=== PATIENT | female | born 1990 | race Caucasian/White ===

== ENCOUNTER 2019-06-29 12:23 | Emergency (ER) | payer SELFPAY ==
[~2019-06-29] VITALS: Ht 172.7 cm; Wt 62.7 kg
[2019-06-29 12:29] VITALS: TEMP 97.9
[2019-06-29] MEDS ORDERED: SEROQUEL 200MG200 MG PO (13:23)
[2019-06-29] MEDS ORDERED: LAMICTAL 25MG T25 MG PO (13:24)
[2019-06-29] MEDS ORDERED: PROZAC 20MG20 MG PO (13:24)
[2019-06-29] MEDS ORDERED: NORCO 325 MG-51 TAB PO (14:03)
[2019-06-29 14:35] VITALS: BP 106/69; PULSE 66
== END 2019-06-29 14:48 | disposition home or self-care (01) ==
LOC: COL.ER 12:23
DX: S93.402A Sprain of unspecified ligament of left ankle, initial encounter (principal); S93.602A Unspecified sprain of left foot, initial encounter; F17.210 Nicotine dependence, cigarettes, uncomplicated; F12.90 Cannabis use, unspecified, uncomplicated; X50.1XXA Overexertion from prolonged static or awkward postures, initial encounter; Y92.009 Unspecified place in unspecified non-institutional (private) residence as the place of occurrence of the external cause

== ENCOUNTER 2020-06-08 13:17 | Emergency (ER) | payer SELFPAY ==
[~2020-06-08] VITALS: Ht 172.7 cm; Wt 67.7 kg
[~2020-06-08 13:17] MED LIST: LAMICTAL 25MG T25 MG PO; NORCO 325 MG-51 TAB PO; PROZAC 20MG20 MG PO; SEROQUEL 200MG200 MG PO
[2020-06-08 13:29] VITALS: TEMP 98.6
[2020-06-08] MEDS ORDERED: PERCOCET 325 MG1 TA2 PO (16:48)
[2020-06-08] MEDS ORDERED: DOXYCYCLINE 10100 MG PO (16:48)
[2020-06-08] MEDS ORDERED: ZOVIRAX400 MG PO (16:48)
[2020-06-08 17:16] VITALS: BP 136/76; PULSE 78
== END 2020-06-08 17:16 | disposition home or self-care (01) ==
LOC: COL.ER 13:17
DX: L98.9 Disorder of the skin and subcutaneous tissue, unspecified (principal); F41.9 Anxiety disorder, unspecified

== ENCOUNTER 2021-07-10 14:36 | Emergency (ER) | payer SELFPAY ==
[~2021-07-10] VITALS: Ht 172.7 cm; Wt 56.8 kg
[~2021-07-10 14:36] MED LIST changes: +DOXYCYCLINE 10100 MG PO; +PERCOCET 325 MG1 TA2 PO; +ZOVIRAX400 MG PO
[2021-07-10 14:44] VITALS: TEMP 98.1
[2021-07-10 15:11] LABS: BASO % 0.3 % (0.0-2.0); EOS # 0.2 (0.0-0.7); EOS % 1.7 % (0-4.0); GRAN # 6.5 (1.4-6.5); GRAN % 75.2 % (42.2-75.2); HEMATOCRIT 40.1 % (37.0-47.0); HEMOGLOBIN 13.8 g/dl (12.5-16.0); LYMPH # 1.3 (1.2-3.4); LYMPH % 15.2 % (20.0-51.0); MEAN CELL VOLUME 86 fl (80.0-100.0); MEAN CORPUSCULAR HEMOGLOBIN 30 pg (27.0-31.0); MEAN CORPUSCULAR HGB CONC 34 g/dl (33.0-37.0); MEAN PLATELET VOLUME 11.3 fl (7.4-10.4); MONO # 0.6 (0.1-0.6); MONO % 7.4 % (1.7-9.3); PLATELET COUNT 215 K/mm3 (130-400); RED BLOOD COUNT 4.66 M/mm3 (4.10-5.30); REDCELL DISTRIBUTION WIDTH-CV 11.8 % (11.5-14.5)
[2021-07-10 15:18] LABS: COLLECTION METHOD CLEAN CATCH
[2021-07-10 15:23] LABS: ALBUMIN 4.3 gm/dL (3.5-5.0); BILIRUBIN,TOTAL 0.7 mg/dL (0.0-1.0); CREATININE, serum 0.65 (0.52-1.25); POTASSIUM 3.3 mmol/L (3.4-5.0); TOTAL PROTEIN 7.2 gm/dL (6.4-8.2)
[2021-07-10 15:26] LABS: BUDDING YEAST Present /hpf; MUCOUS Present /lpf; PH 5 (5-8); URINE APPEARANCE Cloudy; URINE BACTERIA Rare /hpf; URINE BILIRUBIN Negative (NEGATIVE); URINE BLOOD Negative (NEGATIVE); URINE COLOR Amber; URINE GLUCOSE Negative (NEGATIVE); URINE KETONE 2+ (NEGATIVE); URINE LEUKOCYTE ESTERASE 1+ (NEGATIVE); URINE NITRATE Negative (NEGATIVE); URINE PROTEIN(semi-quant) 2+ (NEGATIVE); URINE UROBILINOGEN >=4.0 mg/dL (NEGATIVE)
[2021-07-10] MEDS ORDERED: OMNICEF 300MG300 MG PO (17:10)
[2021-07-10] MEDS ORDERED: NORCO 325 MG-51 TAB PO (17:10)
[2021-07-10] MEDS ORDERED: PRILOSEC 20MG20 MG PO (17:17)
[2021-07-10 17:44] VITALS: BP 113/94
[2021-07-10 18:10] VITALS: PULSE 82
== END 2021-07-10 18:10 | disposition home or self-care (01) ==
LOC: COL.ER 14:36
PROVIDERS: Family Medicine
DX: R10.9 Unspecified abdominal pain (principal); N89.8 Other specified noninflammatory disorders of vagina; Z86.16 Personal history of COVID-19; Z32.02 Encounter for pregnancy test, result negative
CPT/HCPCS: C9113; J0696; J2270; J2405; J7120; Q9967